=== PATIENT | male | born 1965 ===

== ENCOUNTER → 2018-09-15 07:47 | Outpatient (CLI) | payer OTHER | END | disposition home or self-care (01) | LOC: LAB 07:47 | DX: E06.0 Acute thyroiditis (principal); E78.89 Other lipoprotein metabolism disorders; D68.8 Other specified coagulation defects; Z12.11 Encounter for screening for malignant neoplasm of colon; Z22.322 Carrier or suspected carrier of Methicillin resistant Staphylococcus aureus; N40.0 Benign prostatic hyperplasia without lower urinary tract symptoms ==

== ENCOUNTER 2018-12-01 07:15 | Inpatient (IN) | payer OTHER ==
[~2018-12-01] VITALS: Ht 167.6 cm; Wt 98.4 kg
[2018-12-04] MEDS ORDERED: ZOCOR PO (09:15)
[2018-12-04] MEDS ORDERED: LISINOP PO (09:16)
[2018-12-04] MEDS ORDERED: DICLO PO (09:16)
[2018-12-04] MEDS ORDERED: CVS DAILY MULT1 EAC2 PO (09:17)
[2018-12-09] MEDS ORDERED: LISINOPRIL5 MG PO (08:22)
[2018-12-09] MEDS ORDERED: SIMVASTATIN10 MG PO (08:23)
[2018-12-09] MEDS ORDERED: BISOPROLOL-HCT1 EACH PO (08:24)
[2018-12-09] MEDS ORDERED: DICLOFENAC SODI75 MG PO (08:26)
[2018-12-13] MEDS ORDERED: SULFAMETHOXAZO1 EACH PO (08:18)
[2018-12-13] MEDS ORDERED: AMOX-CLAV 875-1 EACH PO (08:18)
[2018-12-13] MEDS ORDERED: ELIQUIS2.5 MG PO (08:18)
[2018-12-13] MEDS ORDERED: PERCOCET 5-3251 EACH PO (08:18)
== END 2018-12-13 12:53 | DRG 470 ==
LOC: SURG 12-09 05:55 → O/R 12-09 05:55 → SURH 12-09 05:55 → O/R 12-09 07:00 → SURH 12-09 19:22 → SURG 12-10 09:33
PROVIDERS: ADMIT Orthopaedic Surgery
PROC: 0QS604Z Reposition Right Upper Femur with Internal Fixation Device, Open Approach (ICD-10-PCS; 2018-12-09)
PROC: 0QPB04Z Removal of Internal Fixation Device from Right Lower Femur, Open Approach (ICD-10-PCS; 2018-12-09)
PROC: 0QB60ZZ Excision of Right Upper Femur, Open Approach (ICD-10-PCS; 2018-12-09)
PROC: 0QU60KZ Supplement Right Upper Femur with Nonautologous Tissue Substitute, Open Approach (ICD-10-PCS; 2018-12-09)
PROC: 3E10X8Z Irrigation of Skin and Mucous Membranes using Irrigating Substance (ICD-10-PCS; 2018-12-09)
PROC: 0SR90JZ Replacement of Right Hip Joint with Synthetic Substitute, Open Approach (ICD-10-PCS; principal; 2018-12-09 11:30)
DX: S72.321A Displaced transverse fracture of shaft of right femur, initial encounter for closed fracture (principal); T84.84XA Pain due to internal orthopedic prosthetic devices, implants and grafts, initial encounter; M16.11 Unilateral primary osteoarthritis, right hip; M89.751 Major osseous defect, right pelvic region and thigh; S72.114A Nondisplaced fracture of greater trochanter of right femur, initial encounter for closed fracture; I10 Essential (primary) hypertension; M65.851 Other synovitis and tenosynovitis, right thigh

== ENCOUNTER 2021-04-26 20:03 | Emergency (ER) | payer OTHER ==
[~2021-04-26] VITALS: Ht 167.6 cm; Wt 93.4 kg
[~2021-04-26 20:03] MED LIST: AMOX-CLAV 875-1 EACH PO; BISOPROLOL-HCT1 EACH PO; CVS DAILY MULT1 EAC2 PO; DICLO PO; DICLOFENAC SODI75 MG PO; ELIQUIS2.5 MG PO; LISINOP PO; LISINOPRIL5 MG PO; PERCOCET 5-3251 EACH PO; SIMVASTATIN10 MG PO; SULFAMETHOXAZO1 EACH PO; ZOCOR PO
[2021-04-26] MEDS ORDERED: IBU800 MG PO (22:17)
== END 2021-04-26 22:27 | disposition home or self-care (01) ==
LOC: ER 20:03
DX: S80.01XA Contusion of right knee, initial encounter (principal); W01.198A Fall on same level from slipping, tripping and stumbling with subsequent striking against other object, initial encounter; Y93.89 Activity, other specified; Y92.89 Other specified places as the place of occurrence of the external cause; Y99.8 Other external cause status